=== PATIENT | male | born 2000 | race Caucasian/White ===

== ENCOUNTER 2020-09-02 14:29 | Outpatient (CLI) | payer BC, OTHER ==
[2020-09-03 04:50] LABS: SARS-CoV-2 PCR by NAA Not Detected (NotDetected)
== END 2020-09-02 14:30 | disposition home or self-care (01) ==
LOC: LABBT 14:29
PROVIDERS: ATTEND Orthopaedic Surgery
DX: Z01.812 Encounter for preprocedural laboratory examination (principal); S43.431A Superior glenoid labrum lesion of right shoulder, initial encounter; Z20.822 Contact with and (suspected) exposure to COVID-19
CPT/HCPCS: 87635; U0003; U0005

== ENCOUNTER 2020-09-05 05:56 | Day surgery (SDC) | payer BC, OTHER ==
[2020-09-04 09:30] VITALS: BMI 29.5
[2020-09-05] MEDS ORDERED: Fentanyl 100 MCG/2 ML VIAL ONE ×2 (07:06→07:57)
[2020-09-05] MEDS ORDERED: Midazolam HCl 2 mg/2 ml Vial ONE (07:06)
[2020-09-05] MEDS ORDERED: Sodium Chloride 0.9% 10 ML ONE (07:08)
[2020-09-05] MEDS ORDERED: traMADol HCl 50 MG TAB PO PRN ×2 (07:45)
[2020-09-05] MEDS ORDERED: Ropivacaine 0.2% 550 ML 550 ML NERVE BLCK SCH (07:45)
[2020-09-05] MEDS ORDERED: HYDROcodone/Acetaminophen 5/325 mg Tablet PO PRN ×2 (07:45)
[2020-09-05] MEDS ORDERED: Promethazine HCl 25 MG/ML VIAL IM PRN (07:45)
[2020-09-05] MEDS ORDERED: Zolpidem Tartrate 5 MG TAB PO PRN (07:45)
[2020-09-05] MEDS ORDERED: Ondansetron PF 4 MG/2 ML Vial IVP PRN (07:45)
[2020-09-05] MEDS ORDERED: Ketorolac Tromethamine 30 MG/ML VIAL ONE (08:06)
[2020-09-05] MEDS ORDERED: Rocuronium Bromide 10 MG/ML (10ML VIAL) ONE (08:06)
[2020-09-05] MEDS ORDERED: Glycopyrrolate 0.2 MG/ML 5 ML SYRINGE ONE (08:06)
[2020-09-05] MEDS ORDERED: Ropivacaine 0.5% HCl/PF (150 MG/30 ML VIAL) ONE (08:06)
[2020-09-05] MEDS ORDERED: Ropivacaine 2% HCl/PF (20 MG/10 ML VIAL) ONE (08:06)
[2020-09-05] MEDS ORDERED: diphenhydrAMINE 50 MG/ML VIAL ONE (08:06)
[2020-09-05] MEDS ORDERED: PROPOFOL 200 MG/20 ML VIAL ONE (08:06)
[2020-09-05] MEDS ORDERED: Dexamethasone 20 MG/5 ML VIAL ONE (08:06)
[2020-09-05] MEDS ORDERED: Lidocaine 1% PF 5 ML VIAL ONE (08:06)
[2020-09-05] MEDS ORDERED: Ondansetron PF 4 MG/2 ML Vial ONE (08:06)
== END 2020-09-05 13:06 | disposition home or self-care (01) ==
LOC: SDC 05:56
PROVIDERS: ATTEND Orthopaedic Surgery
PROC: 3E0T3BZ Introduction of Anesthetic Agent into Peripheral Nerves and Plexi, Percutaneous Approach (ICD-10-PCS; principal; 2020-09-05)
PROC: 0RQJ0ZZ Repair Right Shoulder Joint, Open Approach (ICD-10-PCS; principal; 2020-09-05)
DX: S43.431A Superior glenoid labrum lesion of right shoulder, initial encounter (principal); M25.311 Other instability, right shoulder; G89.18 Other acute postprocedural pain; Y93.61 Activity, american tackle football
CPT/HCPCS: A4306; C1713; J0690; J1100; J1200; J1885; J2250; J2405; J2704; J2795; J3010; J3370